=== PATIENT | female | born 1955 | race African-American/Black ===

== ENCOUNTER 2021-12-15 09:28 | Emergency (ER) | payer MEDICAID, OTHER ==
[~2021-12-15] VITALS: Ht 177.8 cm; Wt 61.0 kg
[2021-12-15 09:36] VITALS: BP 135/109
[2021-12-15] MEDS ORDERED: ACETAMINOPHEN 325MG TABLET PO STA (12:13)
[2021-12-15 12:43] LABS: BASOPHILS % 0.6 % (0.0-2.0); EOSINOPHILS % 0.2 % (0.0-5.0); HEMATOCRIT. 43.5 % (36.0-48.0); HEMOGLOBIN. 14.6 g/dL (12.0-16.0); MEAN CORPUSCULAR HEMOGLOBIN 28.8 pg (28.0-32.0); MEAN CORPUSCULAR VOLUME 85.9 fL (81.0-99.0); MONOCYTES % 7.2 % (2.0-8.0); PLATELET 408 x1000/uL (130-400); RED BLOOD CELL COUNT 5.06 mill/uL (4.2-5.4); RED CELL DISTRIBUTION WIDTH 14.6 % (11.6-14.6)
[2021-12-15 12:51] LABS: CHLORIDE 110 mEq/L (98-107)
[2021-12-15 12:53] LABS: INR 0.9; PROTHROMBIN TIME 10.1 sec (9.6-11.0)
[2021-12-15 14:33] LABS: CLARITY URINE CLOUDY (CLEAR); COLOR URINE YELLOW (YELLOW); KETONES URINE NEGATIVE (NEGATIVE); LEUKOCYTE ESTERASE URINE 1+ (NEGATIVE); NITRITE URINE NEGATIVE (NEGATIVE); OCCULT BLOOD URINE NEGATIVE (NEGATIVE); PH URINE 5.5 (4.5-8.0); PROTEIN URINE NEGATIVE (NEGATIVE); SPECIFIC GRAVITY URINE 1.027 (1.005-1.030); UROBILINOGEN URINE 0.2 E.U./dL (0.2-1.0)
[2021-12-15] MEDS ORDERED: CLAR10 PO (15:05)
[2021-12-15 15:16] LABS: *AMPHETAMINES SCREEN URINE NEGATIVE (NEGATIVE); *BARBITURATES SCREEN URINE NEGATIVE (NEGATIVE); *BENZODIAZEPINES SCREEN URINE NEGATIVE (NEGATIVE); *COCAINE SCREEN URINE PRESUMTIVE POSITIVE (NEGATIVE); CANNABINOID URINE SCREEN PRESUMTIVE POSITIVE (NEGATIVE); METHADONE URINE SCREEN NEGATIVE (NEGATIVE); OPIATES URINE SCREEN NEGATIVE (NEGATIVE); PHENCYCLIDINE URINE SCREEN NEGATIVE (NEGATIVE)
[2021-12-16 08:07] LABS: EBV VIRAL CAPSID AB IGM <36.0 U/mL (0.0-35.9); HIV SCREEN 4G Non Reactive (Non Reactive)
== END 2021-12-15 15:14 | disposition home or self-care (01) ==
LOC: ER 09:28
DX: R21 Rash and other nonspecific skin eruption (principal); F14.10 Cocaine abuse, uncomplicated; F12.10 Cannabis abuse, uncomplicated; I25.2 Old myocardial infarction; I10 Essential (primary) hypertension; Z98.51 Tubal ligation status; Z90.49 Acquired absence of other specified parts of digestive tract
CPT/HCPCS: 36415; 80053; 80305; 80320; 81003; 85025; 86592; 86664; 86665; 87389; 99283; G0480

== ENCOUNTER 2025-01-07 15:01 | Inpatient (IN) | payer MEDICARE, OTHER ==
[~2025-01-07] VITALS: Ht 162.6 cm; Wt 55.8 kg
[~2025-01-07 15:01] MED LIST: CLAR10 PO
[2025-01-07 15:02] VITALS: O2SAT 97
[2025-01-07] MEDS: SODIUM CHLORIDE 0.9% (SEPSIS BOLUS) IV ONE (15:33)
[2025-01-07] MEDS: PIPERACILLIN/TAZO 3.375G/50ML 50 ML IV ONE (15:34)
[2025-01-07] MEDS: VANCOMYCIN 1G PREMIX 200 ML IV ONE (15:43)
[2025-01-07 15:53] LABS: HEMATOCRIT. 34.6 % (36.0-48.0); HEMOGLOBIN. 11.3 g/dL (12.0-16.0); MEAN PLATELET VOLUME 7.4 fl (7.4-10.4); PLATELET 390 x1000/uL (130-400); RED BLOOD CELL COUNT 4.06 mill/uL (4.2-5.4); RED CELL DISTRIBUTION WIDTH 16.6 % (11.6-14.6)
[2025-01-07 16:07] LABS: CREATININE 0.5 mg/dL (0.6-1.0)
[2025-01-07 16:08] LABS: INR 1.0; TROPONIN I HIGH SENSITIVITY 27 ng/L (3.0-34); UREA NITROGEN BLOOD 12 mg/dL (9-23)
[2025-01-07 16:09] LABS: ASPARTATE AMINOTRANSFERASE 29 IU/L (<34)
[2025-01-07 16:10] LABS: BILIRUBIN DIRECT 0.1 mg/dL (<=3.0); BILIRUBIN TOTAL 0.5 mg/dL (0.1-1.0); PROTEIN TOTAL 7.9 g/dL (6.0-8.3)
[2025-01-07 17:14] LABS: BAND% 5.0 % (1.0-6.0); LYMPHOCYTES % MANUAL 10.0 % (20.0-60.0); MONOCYTES % MANUAL 7.0 % (2.0-8.0); NEUTROPHILS % MANUAL 78.0 % (45.0-75.0); PLATELET ESTIMATE NORMAL
[2025-01-07] MEDS: SODIUM CHLORIDE 0.9% 1,000 ML IV ONE (17:16)
[2025-01-07] MEDS: NOREPINEPHRINE 8 MG in DEXT 5% WATER 242 ML IV STA (18:44)
[2025-01-07] MEDS: NOREPINEPHRINE 8MG/250ML PMX 250 ML IV ONE (18:44)
[2025-01-07] MEDS ORDERED: ONDANSETRON HCL 4MG/2ML INJ IV PRN (19:15)
[2025-01-07] MEDS ORDERED: CLONIDINE 0.1MG TABLET PO PRN (19:15)
[2025-01-07] MEDS ORDERED: MAGNESIUM/ALUMINUM HYDROXIDE/SIMETHICONE 30ML UDC PO PRN (19:15)
[2025-01-07] MEDS: ENOXAPARIN 40MG/0.4ML SYR SUBCUT SCH (21:00)
[2025-01-07 21:57] VITALS: BP 126/72; PULSE 89; RESP 20; TEMP 37.1408
[2025-01-07] MEDS: PIPERACILLIN/TAZO 3.375G/50ML 50 ML IV SCH (23:27)
[2025-01-07] MEDS: SODIUM CHLORIDE 0.9% 1,000 ML IV SCH (23:27)
[2025-01-08] VITALS (73 sets, daily range): BP systolic 64–154; BP diastolic 35–119; PULSE 52–90; RESP 7–32; TEMP 36.8–37.2; O2SAT 93–100
[2025-01-08] MEDS: VANCOMYCIN 500MG PREMIX 100 ML IV SCH (05:51)
[2025-01-08] MEDS: HYDROCODONE/ACETAMINOPHEN 5/325MG TABLET PO PRN (05:51)
[2025-01-08 06:11] LABS: HEMATOCRIT. 33.0 % (36.0-48.0); HEMOGLOBIN. 10.4 g/dL (12.0-16.0); MEAN PLATELET VOLUME 7.6 fl (7.4-10.4); PLATELET 458 x1000/uL (130-400); RED BLOOD CELL COUNT 3.92 mill/uL (4.2-5.4); RED CELL DISTRIBUTION WIDTH 16.8 % (11.6-14.6)
[2025-01-08 06:25] LABS: CREATININE 0.4 mg/dL (0.6-1.0)
[2025-01-08 06:27] LABS: UREA NITROGEN BLOOD 11 mg/dL (9-23)
[2025-01-08] MEDS: PANTOPRAZOLE SODIUM 40 MG/VIAL IV SCH (08:39)
[2025-01-08] MEDS ORDERED: NALOXONE HCL 0.4MG/ML VIAL IV PRN (09:15)
[2025-01-08] MEDS: MORPHINE SULFATE 2 MG/ML INJ (NOT FOR IM USE) IV PRN (10:52)
[2025-01-08] MEDS: SODIUM CHLORIDE 0.9% 1,000 ML IV ONE (11:20)
[2025-01-08 13:07] LABS: BAND% 23.0 % (1.0-6.0); LYMPHOCYTES % MANUAL 5.0 % (20.0-60.0); MONOCYTES % MANUAL 3.0 % (2.0-8.0); NEUTROPHILS % MANUAL 69.0 % (45.0-75.0)
[2025-01-08 13:08] LABS: PLATELET ESTIMATE INCREASED
[2025-01-08 15:44] LABS: CLARITY URINE TURBID (CLEAR); COLOR URINE DARK YELLOW (YELLOW); GLUCOSE URINE NEGATIVE (NEGATIVE); KETONES URINE TRACE (NEGATIVE); LEUKOCYTE ESTERASE URINE 3+ (NEGATIVE); NITRITE URINE NEGATIVE (NEGATIVE); OCCULT BLOOD URINE 1+ (NEGATIVE); PH URINE 6.0 (4.5-8.0); PROTEIN URINE 1+ (NEGATIVE); SPECIFIC GRAVITY URINE 1.028 (1.005-1.030); UROBILINOGEN URINE 2.0 E.U./dL (0.2-1.0)
[2025-01-08 15:57] LABS: *AMPHETAMINES SCREEN URINE NEGATIVE (NEGATIVE)
[2025-01-08 15:58] LABS: *BARBITURATES SCREEN URINE NEGATIVE (NEGATIVE); *BENZODIAZEPINES SCREEN URINE NEGATIVE (NEGATIVE); *COCAINE SCREEN URINE NEGATIVE (NEGATIVE); CANNABINOID URINE SCREEN PRESUMPTIVE POSITIVE (NEGATIVE); ECSTASY MDMA SCREEN URINE NEGATIVE (NEGATIVE); METHADONE URINE SCREEN NEGATIVE (NEGATIVE); OPIATES URINE SCREEN PRESUMPTIVE POSITIVE (NEGATIVE); PHENCYCLIDINE URINE SCREEN NEGATIVE (NEGATIVE)
[2025-01-08] MEDS: MIDODRINE HCL 5MG TABLET PO SCH (16:04)
[2025-01-08 16:13] LABS: BACTERIA URINE 1+; SQUAMOUS EPITHELIAL CELL URINE 1+ /lpf (RARE/1+)
[2025-01-08] MEDS ORDERED: BUSP15TA3 PO (18:00)
[2025-01-08] MEDS ORDERED: LEVE250T2 PO (18:00)
[2025-01-08] MEDS ORDERED: OLAN10TA72 PO (18:00)
[2025-01-08] MEDS ORDERED: DIVA500T51 PO (18:00)
[2025-01-08] MEDS ORDERED: DIVA-75 PO (18:00)
[2025-01-08] MEDS ORDERED: DIVALPROEX SODIUM 500MG ER TABLET PO SCH (21:00)
[2025-01-08] MEDS: DIVALPROEX SODIUM 500MG DR TABLET PO SCH (21:59)
[2025-01-08] MEDS: LEVETIRACETAM 500MG TABLET PO SCH (21:59)
[2025-01-08] MEDS: OLANZAPINE 10MG TABLET PO SCH (23:08)
[2025-01-08] MEDS: BUSPIRONE HCL 5MG TABLET PO SCH (23:08)
[2025-01-09] VITALS (52 sets, daily range): BP systolic 86–164; BP diastolic 60–136; PULSE 50–99; RESP 11–37; TEMP 36.4–37.2; O2SAT 96–100
[2025-01-09] MEDS: ZOLPIDEM TARTRATE 5MG TABLET PO PRN (00:38)
[2025-01-09 06:30] LABS: BASOPHILS % 0.3 % (0.0-2.0); EOSINOPHILS % 0.2 % (0.0-5.0); HEMATOCRIT. 29.4 % (36.0-48.0); HEMOGLOBIN. 9.5 g/dL (12.0-16.0); LYMPHOCYTES % 7.8 % (20.0-50.0); MEAN PLATELET VOLUME 7.6 fl (7.4-10.4); MONOCYTES % 7.9 % (2.0-8.0); NEUTROPHILS % 83.8 % (40.0-76.0); PLATELET 427 x1000/uL (130-400); RED BLOOD CELL COUNT 3.53 mill/uL (4.2-5.4); RED CELL DISTRIBUTION WIDTH 17.1 % (11.6-14.6)
[2025-01-09 07:12] LABS: CREATININE 0.4 mg/dL (0.6-1.0); UREA NITROGEN BLOOD 9 mg/dL (9-23)
[2025-01-09] MEDS: VANCOMYCIN 500MG PREMIX 100 ML IV SCH (08:12)
[2025-01-09] MEDS: ASPIRIN 81MG TABLET PO SCH (08:12)
[2025-01-09] MEDS: KCL 20MEQ/100ML PREMIX 100 ML IV SCH (09:12)
[2025-01-09] MEDS: ACETAMINOPHEN 325MG TABLET PO PRN (19:03)
[2025-01-09] MEDS: VANCOMYCIN 750MG PMX (XELLIA) 150 ML IV SCH (21:33)
[2025-01-09] MEDS: SODIUM HYPOCHLORITE 0.125% 473ML SOLUTION TOP SCH (22:59)
[2025-01-10] VITALS: BP 108/57; PULSE 55; RESP 16; TEMP 35.9; O2SAT 94
[2025-01-10 04:00] VITALS: BP 113/64; PULSE 64; RESP 16; TEMP 36.3; O2SAT 94
[2025-01-10 08:00] VITALS: BP 101/68; PULSE 78; RESP 18; TEMP 37.6; O2SAT 99
[2025-01-10 11:09] LABS: HEMATOCRIT. 33.5 % (36.0-48.0); HEMOGLOBIN. 10.9 g/dL (12.0-16.0); MEAN PLATELET VOLUME 7.5 fl (7.4-10.4); PLATELET 478 x1000/uL (130-400); RED BLOOD CELL COUNT 4.09 mill/uL (4.2-5.4); RED CELL DISTRIBUTION WIDTH 17.2 % (11.6-14.6)
[2025-01-10 11:18] LABS: CREATININE 0.4 mg/dL (0.6-1.0); UREA NITROGEN BLOOD 7 mg/dL (9-23)
[2025-01-10 12:00] VITALS: BP 100/61; PULSE 72; RESP 18; TEMP 36.9; O2SAT 97
[2025-01-10 15:39] LABS: LYMPHOCYTES % MANUAL 7.0 % (20.0-60.0); MONOCYTES % MANUAL 11.0 % (2.0-8.0); NEUTROPHILS % MANUAL 82.0 % (45.0-75.0); PLATELET ESTIMATE NORMAL
[2025-01-10 16:00] VITALS: BP 91/55; PULSE 71; RESP 16; TEMP 36.6; O2SAT 99
[2025-01-10 20:00] VITALS: BP 90/59; PULSE 64; RESP 16; TEMP 36.7; O2SAT 94
[2025-01-11] VITALS: BP 91/56; PULSE 55; RESP 16; TEMP 36.6; O2SAT 97
[2025-01-11 04:00] VITALS: BP 107/71; PULSE 70; RESP 18; TEMP 36.9; O2SAT 97
[2025-01-11 07:01] LABS: CREATININE 0.4 mg/dL (0.6-1.0); UREA NITROGEN BLOOD 7 mg/dL (9-23)
[2025-01-11 07:06] LABS: BASOPHILS % 0.3 % (0.0-2.0); EOSINOPHILS % 0.6 % (0.0-5.0); HEMATOCRIT. 31.4 % (36.0-48.0); HEMOGLOBIN. 10.2 g/dL (12.0-16.0); LYMPHOCYTES % 10.9 % (20.0-50.0); MEAN PLATELET VOLUME 8.0 fl (7.4-10.4); MONOCYTES % 8.9 % (2.0-8.0); NEUTROPHILS % 79.3 % (40.0-76.0); PLATELET 430 x1000/uL (130-400); RED BLOOD CELL COUNT 3.78 mill/uL (4.2-5.4); RED CELL DISTRIBUTION WIDTH 17.6 % (11.6-14.6)
[2025-01-11 08:00] VITALS: BP 97/61; PULSE 60; RESP 17; TEMP 37.2; O2SAT 96
[2025-01-11] MEDS: FAMOTIDINE 20MG/2ML VIAL IV SCH (10:02)
[2025-01-11] MEDS ORDERED: AMOX1TAB16 MT (10:31)
[2025-01-11 12:00] VITALS: BP 103/60; PULSE 67; RESP 18; TEMP 36.8; O2SAT 97
[2025-01-11] MEDS: POTASSIUM CHLORIDE 20MEQ TABLET SR PO SCH (12:02)
[2025-01-11 16:00] VITALS: BP 110/74; PULSE 66; RESP 18; TEMP 37.1; O2SAT 99
[2025-01-11 20:00] VITALS: BP 116/72; PULSE 56; RESP 16; TEMP 36.6; O2SAT 97
[2025-01-12] VITALS: BP 123/68; PULSE 61; RESP 18; TEMP 36.7; O2SAT 98
[2025-01-12 00:50] VITALS: BP 119/70; PULSE 74; RESP 18; TEMP 36.4; O2SAT 98
[2025-01-12 04:00] VITALS: BP 122/62; PULSE 77; RESP 18; TEMP 36.7; O2SAT 98
[2025-01-12 12:18] LABS: BASOPHILS % 1.1 % (0.0-2.0); EOSINOPHILS % 0.4 % (0.0-5.0); HEMATOCRIT. 30.6 % (36.0-48.0); HEMOGLOBIN. 10.2 g/dL (12.0-16.0); LYMPHOCYTES % 12.3 % (20.0-50.0); MEAN PLATELET VOLUME 7.1 fl (7.4-10.4); MONOCYTES % 9.9 % (2.0-8.0); NEUTROPHILS % 76.3 % (40.0-76.0); PLATELET 512 x1000/uL (130-400); RED BLOOD CELL COUNT 3.73 mill/uL (4.2-5.4); RED CELL DISTRIBUTION WIDTH 17.4 % (11.6-14.6)
[2025-01-12 12:35] LABS: CREATININE 0.4 mg/dL (0.6-1.0); UREA NITROGEN BLOOD 6 mg/dL (9-23)
[2025-01-12 15:21] VITALS: BP 102/65; PULSE 66; RESP 16; TEMP 98
== END 2025-01-12 16:05 | disposition home health service (06) | DRG 853 ==
LOC: ER 15:01 → EDBEDREQ 17:41 → EDBEDREQSVC 17:41 → ENRESERV 19:05 → MICUSO 20:21 → 5WST 01-09 18:52
PROVIDERS: ADMIT Internal Medicine; ATTEND Internal Medicine
PROC: 0KBP0ZZ Excision of Left Hip Muscle, Open Approach (ICD-10-PCS; principal; 2025-01-11)
DX: A41.89 Other specified sepsis (principal); G92.8 Other toxic encephalopathy; L89.153 Pressure ulcer of sacral region, stage 3; R65.21 Severe sepsis with septic shock; N39.0 Urinary tract infection, site not specified; F03.93 Unspecified dementia, unspecified severity, with mood disturbance; F31.9 Bipolar disorder, unspecified; I10 Essential (primary) hypertension; G40.909 Epilepsy, unspecified, not intractable, without status epilepticus; D64.9 Anemia, unspecified; I25.10 Atherosclerotic heart disease of native coronary artery without angina pectoris; J44.89 Other specified chronic obstructive pulmonary disease; M06.9 Rheumatoid arthritis, unspecified; B96.89 Other specified bacterial agents as the cause of diseases classified elsewhere; E87.6 Hypokalemia; S93.409A Sprain of unspecified ligament of unspecified ankle, initial encounter; L89.150 Pressure ulcer of sacral region, unstageable; Z90.49 Acquired absence of other specified parts of digestive tract; Z51.5 Encounter for palliative care; I69.398 Other sequelae of cerebral infarction
CPT/HCPCS: 36415; 71045; 71250; 72220; 80048; 80076; 80202; 80305; 81003; 83605; 83880; 84145; 84443; 84484; 85025; 86850; 86900; 87070; 87077; 87186; 93005; 93306; 93970; 99285; A4606; J1308; J1650; J2270; J2470; J2543; J3373; J3480; J3490; J7030; J7060